=== PATIENT | male | born 1995 | race Caucasian/White ===

== ENCOUNTER 2021-02-12 09:55 | Emergency (ER) | payer SELFPAY ==
[2021-02-12] MEDS ORDERED: IBUPROFEN600 MG PO (12:09)
[2021-02-12] MEDS ORDERED: BACTROBAN OINT22 GM EXT (12:09)
== END 2021-02-12 13:15 | disposition home or self-care (01) ==
LOC: ER1 09:55
DX: S81.011A Laceration without foreign body, right knee, initial encounter (principal); W01.0XXA Fall on same level from slipping, tripping and stumbling without subsequent striking against object, initial encounter; Y92.89 Other specified places as the place of occurrence of the external cause; Y99.0 Civilian activity done for income or pay
CPT/HCPCS: 12002; 73564; 73590; 99283